=== PATIENT | female | born 1945 | race Caucasian/White ===

== ENCOUNTER 2021-05-10 09:38 | Observation (INO) ==
[2021-05-10] MEDS ORDERED: Aspirin 81 MG TAB.CHEW PO ONE (09:54)
[2021-05-10 10:43] LABS: INR 0.9; Prothrombin Time 10.3 Seconds (9.4-12.1)
[2021-05-10 10:45] LABS: Activated Partial Thrombo Time 31.9 Seconds (26.0-36.0); Basophils % 0.8 %; Eosinophils # 0.2 K/mcL (0.0-0.6); Eosinophils % 3.8 %; Hematocrit 43.3 % (35.3-44.9); Hemoglobin 13.7 g/dL (11.5-15.4); Immature Granulocytes % 0.4 % (0-4); Lymphocytes # 1.2 K/mcL (0.6-4.6); Lymphocytes % 24.4 %; Mean Corpuscular HGB Conc 31.6 g/dL (31.6-35.5); Mean Corpuscular Hemoglobin 28.4 pg (28.0-33.3); Mean Corpuscular Volume 89.8 fL (83.0-100.0); Mean Platelet Volume 11.8 fL (9.4-12.4); Monocytes # 0.4 K/mcL (0.0-1.3); Monocytes % 7.5 %; Platelet Count 226 K/mcL (140-400); Red Blood Count 4.82 M/mcL (3.82-4.97); Red Cell Distribution Width 14.4 % (11.5-14.5); Segmented Neutrophils % 63.1 %; White Blood Count 4.8 K/mcL (4.3-11.1)
[2021-05-10 10:48] LABS: BUN/Creatinine Ratio 15 (6-26); Blood Urea Nitrogen 17 mg/dL (8-23); Calcium 9.2 mg/dL (8.6-10.3); Carbon Dioxide 27 mEq/L (23-29); Chloride 105 mEq/L (98-107); Glucose 98 mg/dL (70-105); Osmolality,Calculated 290 (280-300); Potassium 4.2 mEq/L (3.5-5.1); Sodium 139 mEq/L (136-145); eGFR For African Americans 58 (> 60); eGFR For Non-African Americans 48 (> 60)
[2021-05-10 10:52] LABS: Troponin I < 0.03 ng/mL (< 0.04)
[2021-05-10] MEDS ORDERED: Isovue-370 500 ML BOTTLE IVP ONE (10:53)
[2021-05-10] MEDS ORDERED: Ondansetron 4 MG/2 ML VIAL IVP PRN (12:48)
[2021-05-10] MEDS ORDERED: *HR* HYDROcodone/Acet 5/325 mg TABLET PO PRN (12:48)
[2021-05-10] MEDS ORDERED: Acetaminophen 325 MG TABLET PO PRN (12:48)
[2021-05-10] MEDS ORDERED: Naloxone 0.4 MG/ML INJ IVP PRN (12:48)
[2021-05-10] MEDS ORDERED: Benzonatate 100 MG CAPSULE PO PRN (12:50)
[2021-05-10] MEDS ORDERED: Nitroglycerin 0.4 MG TAB.SUBL SL PRN (16:00)
[2021-05-10] MEDS ORDERED: Perflutren Lipid Microsphere 1.3 ML in 0.9 % Sodium Chloride 8.7 ML IVP PRN (16:01)
[2021-05-10] MEDS: Gabapentin 300 MG CAPSULE PO SCH ×2 (18:24→20:25)
[2021-05-10] MEDS: Psyllium 1 PACKET POWD.PACK PO SCH (20:27)
[2021-05-11 06:17] LABS: Hematocrit 38.2 % (35.3-44.9); Mean Corpuscular HGB Conc 31.4 g/dL (31.6-35.5); Mean Corpuscular Hemoglobin 28.1 pg (28.0-33.3); Mean Corpuscular Volume 89.5 fL (83.0-100.0); Mean Platelet Volume 11.7 fL (9.4-12.4); Platelet Count 212 K/mcL (140-400); Red Blood Count 4.27 M/mcL (3.82-4.97); Red Cell Distribution Width 14.5 % (11.5-14.5); White Blood Count 4.8 K/mcL (4.3-11.1)
[2021-05-11 06:32] LABS: Calcium 8.6 mg/dL (8.6-10.3); Chol/HDL Ratio 3.1 (0-4.9); Potassium 3.9 mEq/L (3.5-5.1)
[2021-05-11] MEDS: Gabapentin 300 MG CAPSULE PO SCH (08:37)
[2021-05-11] MEDS: Psyllium 1 PACKET POWD.PACK PO SCH (08:37)
[2021-05-11] MEDS ORDERED: hydroCHLOROthiazide 25 MG TABLET PO SCH (09:00)
[2021-05-11] MEDS ORDERED: Cholecalciferol (D-3) 1,000 UNIT (25MCG) TABLET PO SCH (09:00)
[2021-05-11] MEDS ORDERED: FOLIC ACID 20 MG PO SCH (09:00)
[2021-05-11] MEDS ORDERED: Aspirin Enteric Coated 81 MG Tablet PO SCH (09:00)
[2021-05-11] MEDS ORDERED: BIOTIN 2500 MCG PO SCH (09:00)
[2021-05-11 11:34] VITALS: BP 152/85; PULSE 65; RESP 16; TEMP 97.7; O2SAT 94
== END 2021-05-11 14:05 | disposition home or self-care (01) ==
LOC: EMEROOGRE 09:38 → INPGRE 09:38
PROVIDERS: ADMIT Family Medicine; ATTEND Family Medicine